=== PATIENT | male | born 1955 | race Caucasian/White ===

== ENCOUNTER 2016-10-10 17:11 | Inpatient (IN) | payer OTHER ==
[~2016-10-10] VITALS: Ht 175.3 cm; Wt 74.8 kg
[2016-10-11 01:45] VITALS: BP 132/84
[2016-10-11] MEDS ORDERED: LORAZEPAM 1 MG TABLET PO PRN ×2 (03:00)
[2016-10-11] MEDS ORDERED: ONDANSETRON ODT 4 MG TAB.RAPDIS SL PRN (03:00)
[2016-10-11] MEDS ORDERED: DICYCLOMINE HCL 20 MG TABLET PO PRN (03:00)
[2016-10-11] MEDS ORDERED: MAG HYDROX/AL HYDROX/SIMETH 30 ML LIQUID UDC PO PRN (03:00)
[2016-10-11] MEDS ORDERED: ACETAMINOPHEN 325 MG TABLET PO PRN (03:00)
[2016-10-11] MEDS ORDERED: diphenhydrAMINE 50 MG CAPSULE PO PRN (03:00)
[2016-10-11] MEDS ORDERED: LORAZEPAM 2 MG/1 ML VIAL IM PRN (03:00)
[2016-10-11] MEDS ORDERED: MIRALAX 17 GM POWD.PACK PO PRN (03:00)
[2016-10-11] MEDS ORDERED: PROMETHAZINE HCL 25 MG/1 ML VIAL IM PRN (03:00)
[2016-10-11] MEDS ORDERED: THIAMINE HCL 200 MG/2 ML VIAL IM ONE (03:00)
[2016-10-11] MEDS ORDERED: IBUPROFEN 400 MG TABLET PO PRN (03:00)
[2016-10-11] MEDS ORDERED: MAGNESIUM HYDROXIDE 30 ML LIQUID UDC PO PRN (03:00)
[2016-10-11] MEDS ORDERED: DIAZEPAM 10 MG TABLET PO PRN (03:00)
[2016-10-11] MEDS ORDERED: LOPERAMIDE HCL 2 MG CAPSULE PO PRN ×2 (03:00)
[2016-10-11 04:00] VITALS: BP 147/89
[2016-10-11] MEDS ORDERED: AMLO5TAB2 PO (04:03)
[2016-10-11] MEDS ORDERED: TERA2CAP4 PO (04:03)
[2016-10-11] MEDS ORDERED: HYDR12.55 PO (04:03)
[2016-10-11 04:26] LABS: *AMPHETAMINE, URINE NEGATIVE (NEGATIVE); *BARBITURATE, URINE POSITIVE (NEGATIVE); *CANNABINOID, URINE NEGATIVE (NEGATIVE); *COCCAINE, URINE POSITIVE (NEGATIVE); *OPIATE, URINE NEGATIVE (NEGATIVE); *PHENCYCLIDINE SCREEN,URINE NEGATIVE (NEGATIVE)
[2016-10-11 07:22] LABS: BASOPHILS # (AUTO) 0.1 K/uL (0.0-8.0); BASOPHILS % (AUTO) 1.8 % (0.0-2.0); EOSINOPHILS # (AUTO) 0.3 K/uL (0.0-0.7); EOSINOPHILS % (AUTO) 4.8 % (0.0-7.0); HEMATOCRIT 48.9 % (40-50); HEMOGLOBIN 16.1 G/DL (14.0-18.0); LYMPHOCYTES # (AUTO) 2.7 K/UL (0.8-4.8); LYMPHOCYTES % (AUTO) 41.6 % (20.5-51.5); MEAN CORPUSCULAR HEMOGLOBIN 30.8 UUG (27.0-31.0); MEAN CORPUSCULAR HGB CONC 33 g/dL (32.0-37.0); MEAN CORPUSCULAR VOLUME 93.1 FL (82.0-92.0); MONOCYTES # (AUTO) 0.6 K/UL (0.1-1.30); MONOCYTES % (AUTO) 9.6 % (0.0-11.0); NEUTROPHILS # (AUTO) 2.7 K/UL (1.8-8.9); NEUTROPHILS % (AUTO) 42.2 % (38.5-71.5); PLATELET COUNT (AUTO) 292 K/UL (150-450); RED BLOOD CELL COUNT(AUTO) 5.25 MIL/UL (4.7-6.1); RED CELL DISTRIBUTION WIDTH 14.5 % (11.5-14.5); WHITE BLOOD COUNT (AUTO) 6.4 K/UL (4.0-11.2)
[2016-10-11 07:51] LABS: ALANINE AMINOTRANSFERASE 20 U/L (16-63); ALBUMIN 3.8 g/dL (3.4-5.0); ALKALINE PHOSPHATASE 116 U/L (50-136); AMYLASE 84 U/L (25-115); ASPARTATE AMINOTRANSFERASE 16 U/L (15-37); BILIRUBIN,TOTAL 0.5 mg/dL (0.2-1.0); CALCIUM 9.3 mg/dL (8.5-10.1); CHLORIDE 105 mmol/L (98-107); GFR 44 mL/min (>60); GLUCOSE 71 mg/dL (74-106); LIPASE 129 U/L (73-393); MAGNESIUM 2.2 mg/dL (1.8-2.4); POTASSIUM 3.6 mmol/L (3.5-5.1); SODIUM SERUM 141 mmol/L (136-145); TOTAL PROTEIN, SERUM 8.4 g/dL (6.4-8.2); UREA NITROGEN, BLOOD 20 mg/dL (7-18)
[2016-10-11 08:00] VITALS: BP 168/89
[2016-10-11] MEDS ORDERED: ONDANSETRON 4 MG/2 ML VIAL IM PRN (08:00)
[2016-10-11 08:09] LABS: ETHANOL < 3 MG/DL (0-0)
[2016-10-11 08:17] LABS: CARBON DIOXIDE 33 mmol/L (21-32); CREATININE 1.6 mg/dL (0.6-1.3)
[2016-10-11 08:18] LABS: THYROID STIMULATING HORMONE 1.139 mIU/mL (0.358-3.740)
[2016-10-11] MEDS: THIAMINE HCL 100 MG TABLET PO SCH (08:56)
[2016-10-11] MEDS: CLONIDINE HCL 0.1 MG TABLET PO PRN (08:56)
[2016-10-11] MEDS: FOLIC ACID 1 MG TABLET PO SCH (08:56)
[2016-10-11] MEDS: MULTIVITAMINS,THERAPEUTIC TABLET PO SCH (08:57)
[2016-10-11 09:22] LABS: HIV-1 p24 ANTIGEN NON REACTIVE (NONREACTIVE); HIV-1/2 ANTIBODY NON REACTIVE (NONREACTIVE)
[2016-10-11] MEDS ORDERED: HYDROCHLOROTHIAZIDE 12.5 MG CAPSULE PO ONE (09:30)
[2016-10-11] MEDS ORDERED: AMLODIPINE 5 MG TABLET PO ONE (09:30)
[2016-10-11] MEDS ORDERED: AMLODIPINE 5 MG TABLET PO SCH (10:45)
[2016-10-11] MEDS ORDERED: HYDROCHLOROTHIAZIDE 12.5 MG CAPSULE PO SCH (10:45)
[2016-10-11 12:00] VITALS: BP 144/77
[2016-10-11 16:00] VITALS: BP 131/82
[2016-10-11 20:00] VITALS: BP 143/79
[2016-10-11] MEDS ORDERED: PATIENT MAY USE OWN MED- MD OK PO SCH (21:00)
[2016-10-11] MEDS: LIDOCAINE 5% PATCH TD SCH (21:18)
[2016-10-11] MEDS: HYDROXYZINE PAMOATE 25 MG CAPSULE PO PRN (21:18)
[2016-10-11] MEDS: TERAZOSIN 2 MG CAPSULE PO SCH (21:18)
[2016-10-12] VITALS: BP 142/83
[2016-10-12 04:00] VITALS: BP 144/76
[2016-10-12 08:00] VITALS: BP 158/95
[2016-10-12 08:52] LABS: CALCIUM 9.3 mg/dL (8.5-10.1); MAGNESIUM 1.9 mg/dL (1.8-2.4); POTASSIUM 4.3 mmol/L (3.5-5.1)
[2016-10-12] MEDS ORDERED: PATIENT MAY USE OWN MED- MD OK PO SCH ×2 (09:00)
[2016-10-12] MEDS ORDERED: TUBERCULIN,PURIF.PROT.DERIV. 5 TU/0.1 ML TEST ID ONE (09:00)
[2016-10-12 09:01] LABS: CREATININE 1.5 mg/dL (0.6-1.3)
[2016-10-12] MEDS: FOLIC ACID 1 MG TABLET PO SCH (09:47)
[2016-10-12] MEDS: MULTIVITAMINS,THERAPEUTIC TABLET PO SCH (09:47)
[2016-10-12] MEDS: THIAMINE HCL 100 MG TABLET PO SCH (09:47)
[2016-10-12] MEDS: CLONIDINE HCL 0.1 MG TABLET PO PRN (09:47)
[2016-10-12] MEDS: HYDROCHLOROTHIAZIDE 12.5 MG CAPSULE PO SCH (09:47)
[2016-10-12] MEDS: LIDOCAINE 5% PATCH TD SCH (09:48)
[2016-10-12 12:00] VITALS: BP 140/77
[2016-10-12] MEDS ORDERED: AMLODIPINE 5 MG TABLET PO ONE (13:00)
[2016-10-12 14:09] LABS: HCV AB <0.1 s/co ratio (0.0-0.9); HEPATITIS B CORE AB, IgM Negative (Negative); HEPATITIS B SURFACE AG Negative (Negative)
[2016-10-12 15:37] LABS: *AMPHETAMINE, URINE NEGATIVE (NEGATIVE); *BARBITURATE, URINE POSITIVE (NEGATIVE); *CANNABINOID, URINE NEGATIVE (NEGATIVE); *COCCAINE, URINE POSITIVE (NEGATIVE); *OPIATE, URINE NEGATIVE (NEGATIVE); *PHENCYCLIDINE SCREEN,URINE NEGATIVE (NEGATIVE)
[2016-10-12 16:00] VITALS: BP 144/90
[2016-10-12 16:15] LABS: *CREATININE,URINE 122.5 mg/dL (30-125)
[2016-10-12 20:00] VITALS: BP 145/87
[2016-10-12] MEDS: HYDROXYZINE PAMOATE 25 MG CAPSULE PO PRN (20:45)
[2016-10-12] MEDS: TERAZOSIN 2 MG CAPSULE PO SCH (20:46)
[2016-10-12] MEDS ORDERED: Acetaminophen PO (21:43)
[2016-10-12] MEDS ORDERED: HYDR12.517 PO (21:43)
[2016-10-12] MEDS ORDERED: HYDR-3895 PO (21:43)
[2016-10-12] MEDS ORDERED: Terazosin Hcl PO (21:43)
[2016-10-12] MEDS ORDERED: AMLO5TAB2 PO (21:43)
[2016-10-12] MEDS ORDERED: LIDO30AD10 TD (21:43)
[2016-10-13] VITALS: BP 124/66
[2016-10-13 04:00] VITALS: BP 138/82
[2016-10-13 08:26] VITALS: BP 149/93
[2016-10-13] MEDS: MULTIVITAMINS,THERAPEUTIC TABLET PO SCH (08:26)
[2016-10-13] MEDS: THIAMINE HCL 100 MG TABLET PO SCH (08:26)
[2016-10-13] MEDS: HYDROCHLOROTHIAZIDE 12.5 MG CAPSULE PO SCH (08:26)
[2016-10-13] MEDS: LIDOCAINE 5% PATCH TD SCH (08:27)
[2016-10-13] MEDS: FOLIC ACID 1 MG TABLET PO SCH (08:28)
[2016-10-13] MEDS ORDERED: AMLODIPINE 5 MG TABLET PO SCH ×2 (09:00)
== END 2016-10-13 09:39 | disposition home or self-care (01) | DRG 895 ==
LOC: SRC 10-11 01:14
PROVIDERS: ADMIT Internal Medicine; ATTEND Internal Medicine
PROC: HZ2ZZZZ Detoxification Services for Substance Abuse Treatment (ICD-10-PCS; principal; 2016-10-11)
PROC: HZ41ZZZ Group Counseling for Substance Abuse Treatment, Behavioral (ICD-10-PCS; principal; 2016-10-11)
PROC: HZ31ZZZ Individual Counseling for Substance Abuse Treatment, Behavioral (ICD-10-PCS; 2016-10-12)
DX: F10.230 Alcohol dependence with withdrawal, uncomplicated (principal); F14.20 Cocaine dependence, uncomplicated; E87.3 Alkalosis; N17.9 Acute kidney failure, unspecified; Y90.9 Presence of alcohol in blood, level not specified; Z82.49 Family history of ischemic heart disease and other diseases of the circulatory system; Z80.3 Family history of malignant neoplasm of breast; Z81.3 Family history of other psychoactive substance abuse and dependence; M16.12 Unilateral primary osteoarthritis, left hip; N40.0 Benign prostatic hyperplasia without lower urinary tract symptoms; F17.210 Nicotine dependence, cigarettes, uncomplicated; E86.0 Dehydration; F43.12 Post-traumatic stress disorder, chronic; X58.XXXS Exposure to other specified factors, sequela; Z91.14 Patient's other noncompliance with medication regimen; G47.33 Obstructive sleep apnea (adult) (pediatric); F32.9 Major depressive disorder, single episode, unspecified; I10 Essential (primary) hypertension; Z91.19 Patient's noncompliance with other medical treatment and regimen
CPT/HCPCS: 36415; 70030-TC; 71010; 73502; 80307; 80345; 80353; 83690; 83735; 84300; 84443; 85025; 86580; 86592; 86705; 86803; 87340; 87806; 97001; G6040-TC